=== PATIENT | male | born 1985 | race Hispanic/Latino ===

== ENCOUNTER 2021-02-26 19:52 | Emergency (ER) | payer SELFPAY ==
--- NOTE | 2021-02-27 01:25 | ER ---
Nurse's Notes [facility] Name: Gibran Yang Age: 36 yrs Sex: Male : 1985 Arrival Date: 02/26/2021 Time: 19:59 Bed Waiting Private MD: Diagnosis: Presentation: 02/26 21:16 Chief complaint: Patient states: he was exposed to Covid at work and has been feeling bb SOB with a fever and cough x 2 days. Coronavirus screen: cough unrelated to allergies, fever, Client presents with at least one sign or symptom that may indicate coronavirus-19. Standard/surgical mask placed on the client. Ebola Screen: No symptoms or risks identified at this time. Initial Sepsis Screen: Does the patient meet any 2 criteria? No. Patient's initial sepsis screen is negative. Does the patient have a suspected source of infection? No. Patient's initial sepsis screen is negative. Risk Assessment: Do you want to hurt yourself or someone else? Patient reports no desire to harm self or others. Onset of symptoms was February 24, 2021. 21:16 Method Of Arrival: Ambulatory bb 21:16 Acuity: JAKE 4 bb Triage Assessment: 21:18 General: Appears in no apparent distress. Behavior is cooperative. Pain: Denies pain. bb Neuro: Level of Consciousness is awake, alert, obeys commands, Oriented to person, place, time, situation. Cardiovascular: Capillary refill < 3 seconds Patient's skin is warm and dry. Respiratory: Reports cough that is Respiratory effort is even, unlabored, Onset: The symptoms/episode began/occurred 2 days ago, the patient has mild shortness of breath. Historical: - Allergies: 21:18 No Known Allergies; bb - Home Meds: 21:18 None [Active]; bb - PMHx: 21:18 None; bb - PSHx: 21:18 None; bb - Immunization history:: Adult Immunizations up to date. - Social history:: Smoking status: Patient denies any tobacco usage or history of. Patient uses alcohol, occasionally. Patient/guardian denies using street drugs. Vital Signs: 21:16 BP 138 / 103; Pulse 94; Resp 16 S; Temp 98.5(TE); Pulse Ox 99% on R/A; Weight 80.74 kg bb (R); Height 5 ft. 6 in. (167.64 cm) (R); Pain 0/10; 21:16 Body Mass Index 28.73 (80.74 kg, 167.64 cm) bb ED Course: 19:59 Patient arrived in ED. cf2 21:18 Triage completed. bb 21:18 Arm band placed on Patient placed in waiting room, Patient notified of wait time. bb 21:20 Labs ordered per protocol. Drawn by ED staff. bb 02/27 01:25 Patient's name was called from ER lobby. No response. Unable to locate patient. Will bb disposition as left without being seen by a provider. Administered Medications: No medications were administered Outcome: 01:25 Patient left the ED. bb Signatures: Bhavana Dwyer RN RN bb Merlyn Palm cf2
[2021-02-27 02:20] VITALS: BP 138/103; TEMP 98.5; O2SAT 99
== END 2021-02-27 01:25 | disposition left against medical advice (07) ==
LOC: ER 19:52
DX: Z53.21 Procedure and treatment not carried out due to patient leaving prior to being seen by health care provider (principal); Z20.822 Contact with and (suspected) exposure to COVID-19
CPT/HCPCS: 99282; U0003